=== PATIENT | female | born 1975 | race Caucasian/White ===

== ENCOUNTER 2019-03-22 04:40 | Emergency (ER) | payer BC ==
--- NOTE | 2019-03-22 04:55 | EDM.PDOC ---
ED HPI GENERAL MEDICAL PROBLEM - General Chief Complaint: Respiratory Problem Stated Complaint: CHEST CONGESTION, LEFT ANKLE PAIN Time Seen by Provider: 03/22/19 04:52 - History of Present Illness INITIAL COMMENTS - FREE TEXT/NARRATIVE: HISTORY AND PHYSICAL: History of present illness: Patient's 43-year-old female presents with a concern of cough congestion and left ankle pain patient is a smoker she denies fever chills nausea vomiting patient states she injured her ankle approximately 1 month prior and has had chronic intermittent pain since. Review of systems: As per history of present illness and below otherwise all systems reviewed and negative. Past medical history: As per history of present illness and as reviewed below otherwise noncontributory. Surgical history: As per history of present illness and as reviewed below otherwise noncontributory. Social history: No reported history of drug or alcohol abuse. Family history: As per history of present illness and as reviewed below otherwise noncontributory. Physical exam: HEENT: Atraumatic, normocephalic, pupils reactive, negative for conjunctival pallor or scleral icterus, mucous membranes moist, throat clear, neck supple, nontender, trachea midline. Lungs: Clear to auscultation, breath sounds equal bilaterally, chest nontender. Heart: S1S2, regular, negative for clicks, rubs, or JVD. Abdomen: Soft, nondistended, nontender. Negative for masses or hepatosplenomegaly. Negative for costovertebral tenderness. Pelvis: Stable nontender. Genitourinary: Deferred. Rectal: Deferred. Extremities: Atraumatic, negative for cords or calf pain. Neurovascular unremarkable. Neuro: Awake, alert, oriented. Cranial nerves II through XII unremarkable. Cerebellum unremarkable. Motor and sensory unremarkable throughout. Exam nonfocal. Diagnostics: Chest x-ray Therapeutics: None Impression: #1 tracheobronchitis #2 left ankle pain Definitive disposition and diagnosis as appropriate pending reevaluation and review of above. - Related Data Allergies Allergy/AdvReac Type Severity Reaction Status Date / Time No Known Allergies Allergy Verified 03/22/19 04:52 ED ROS GENERAL - Review of Systems Review Of Systems: ROS reveals no pertinent complaints other than HPI. ED EXAM, GENERAL - Physical Exam Exam: See Below (See dictation) Departure - Departure Time of Disposition: 04:54 Disposition: Home, Self-Care 01 Condition: Good Clinical Impression: Tracheobronchitis, Ankle pain - Discharge Information Referrals: PCP,None [Primary Care Provider] - Additional Instructions: The following information is given to patients seen in the emergency department who are being discharged to home. This information is to outline your options for follow-up care. We provide all patients seen in our emergency department with a follow-up referral. The need for follow-up, as well as the timing and circumstances, are variable depending upon the specifics of your emergency department visit. If you don't have a primary care physician on staff, we will provide you with a referral. We always advise you to contact your personal physician following an emergency department visit to inform them of the circumstance of the visit and for follow-up with them and/or the need for any referrals to a consulting specialist. The emergency department will also refer you to a specialist when appropriate. This referral assures that you have the opportunity for followup care with a specialist. All of these measure are taken in an effort to provide you with optimal care, which includes your followup. Under all circumstances we always encourage you to contact your private physician who remains a resource for coordinating your care. When calling for followup care, please make the office aware that this follow-up is from your recent emergency room visit. If for any reason you are refused follow-up, please contact the [facility] emergency department at and asked to speak to the emergency department charge nurse. [facility] [address] [place] [id number] [facility] - [facility] Professional Building [address] [place] [address], [address] [place] [address] Albuterol as prescribed. Smoking follow-up primary care and orthopedic clinic above return as needed as discussed
--- NOTE | 2019-03-22 05:22 | CR ---
Indication: Ankle pain Technique: Three views left ankle Comparison: Nine Findings: Bones: Alignment is normal. No fractures or bone lesions. Joint spaces: Unremarkable. Soft tissues: Unremarkable. Impression: Negative. Dictated by Susan Yadav MD @ Mar 22 2019 5:21AM Signed by Dr. Susan Yadav @ Mar 22 2019 5:21AM
--- NOTE | 2019-03-22 05:31 | CR ---
Indication: Cough Technique: Chest 1 view Comparison: None Findings/Impression: Normal cardiomediastinal silhouette. Clear lungs and pleural spaces. No acute osseous abnormality. Dictated by Susan Yadav MD @ Mar 22 2019 5:30AM Signed by Dr. Susan Yadav @ Mar 22 2019 5:30AM
== END 2019-03-22 05:59 | disposition home or self-care (01) ==
LOC: EDSEX 04:40 → MW.ED 04:40
DX: J40 Bronchitis, not specified as acute or chronic (principal); M25.572 Pain in left ankle and joints of left foot; F17.200 Nicotine dependence, unspecified, uncomplicated
CPT/HCPCS: 71045; 71045-26; 73610-26-LT; 73610-LT; 99282; 99283-25

== ENCOUNTER 2019-09-20 23:23 | Emergency (ER) | payer BC ==
--- NOTE | 2019-09-21 00:04 | EDM.PDOC ---
ED [facility] GENERAL MEDICAL PROBLEM - General Chief Complaint: Skin Complaint Stated Complaint: ALLERGIC REACTION Time Seen by Provider: 09/21/19 00:00 Source of Information: Reports: Patient History Limitations: Reports: No Limitations - History of Present Illness INITIAL COMMENTS - FREE TEXT/NARRATIVE: Patient is 44-year-old female with a past medical history of early bowel syndrome and fibromyalgia with a chief complaint of facial rash. Patient states rashes been present for approximately 2 days. Patient states rash started on her neck and progressed up to her face. Rash is slightly relieved by Benadryl. Rash is intermittently itchy. Patient reports some associated swelling in her cheeks. Patient denies any swelling in her throat, difficulty breathing, shortness of breath, abdominal pain. Patient denies any recent exposures. 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 Patient states she does not work with chemicals but has no recent chemical exposure that she can contribute this to. Denies any systemic symptoms or recent illnesses. In addition to that documented in the HPI above, the additional ROS was obtained : Constitutional: Denies fevers or chills Eyes: Denies vision changes ENMT: Denies sore throat CV: Denies chest pain Resp: Denies SOB GI: Denies vomiting or diarrhea : Denies painful urination MSK: Denies recent trauma Skin: Denies new rashes Neuro: Denies new numbness or tingling or weakness Endocrine: Denies unexpected weight loss Heme: Denies bleeding disorders I have reviewed the triage vital signs Const: Well nourished, well developed, appears stated age Eyes: PERRL, no conjunctival injection HENT: NCAT, Neck supple without meningismus CV: RRR, Warm, well-perfused extremities RESP: CTAB, Unlabored respiratory effort GI: soft, non-tender, non-distended, no masses MSK: No gross deformities appreciated Skin: Slight erythematous rash to the bilateral cheeks. No intraoral lesions. No involvement of the nose or nasolabial folds. 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 Sensation and motor function of extremities grossly intact. Psych: Appropriate mood and affect - Related Data Allergies Allergy/AdvReac Type Severity Reaction Status Date / Time No Known Allergies Allergy Verified 09/20/19 23:39 Home Meds: Home Meds Atropine/Diphenoxylate [Diphenoxylate-Atropine] 1 dose PO DAILY 03/22/19 [ History] Hyoscyamine [Hyomax-SL] 1 dose PO ASDIRECTED 03/22/19 [History] Modafinil 100 mg PO DAILY 03/22/19 [History] Pregabalin [Lyrica] 150 mg PO BID 03/22/19 [History] traMADol [Ultram] 50 mg PO TID PRN 03/22/19 [History] Past Medical History HEENT History: Reports: None Cardiovascular History: Reports: None Respiratory History: Reports: None Gastrointestinal History: Reports: Irritable Bowel Syndrome Genitourinary History: Reports: None HUMAN RESOURCE STATISTICIAN History: Reports: None Musculoskeletal History: Reports: Fibromyalgia Neurological History: Reports: None Psychiatric History: Reports: None Endocrine/Metabolic History: Reports: None Hematologic History: Reports: None Immunologic History: Reports: None Oncologic (Cancer) History: Reports: None Dermatologic History: Reports: None - Infectious Disease History Infectious Disease History: Reports: Chicken Pox - Past Surgical History Head Surgeries/Procedures: Reports: None HEENT Surgical History: Reports: Adenoidectomy, Tonsillectomy Cardiovascular Surgical History: Reports: None Respiratory Surgical History: Reports: None GI Surgical History: Reports: None Female Surgical History: Reports: Hysterectomy Endocrine Surgical History: Reports: None Neurological Surgical History: Reports: None Musculoskeletal Surgical History: Reports: None Oncologic Surgical History: Reports: None Dermatological Surgical History: Reports: None Social & Family History - Family History Family Medical History: Noncontributory - Tobacco Use Smoking Status *Q: Current Every Day Smoker Years of Tobacco use: 20 Packs/Tins Daily: 0.3 - Caffeine Use Caffeine Use: Reports: Coffee, Energy Drinks, Tea - Recreational Drug Use Recreational Drug Use: Yes Drug Use in Last 12 Months: Yes Recreational Drug Type: Reports: Marijuana/Hashish Recreational Drug Use Frequency: Weekly ED ROS GENERAL - Review of Systems Review Of Systems: See Below ED EXAM, SKIN/RASH Exam: See Below Course - Vital Signs Last Recorded V/S: Last Vital Signs Temp 35.4 C 09/20/19 23:37 Pulse 77 09/20/19 23:37 Resp 16 09/20/19 23:37 BP 118/76 09/20/19 23:37 Pulse Ox 98 09/20/19 23:37 Departure - Departure Time of Disposition: 00:03 Disposition: Home, Self-Care 01 Condition: Good Clinical Impression: Atopic dermatitis - Discharge Information Instructions: Rash Referrals: Eric Cardona MD [Primary Care Provider] - Forms: ED Department Discharge Additional Instructions: The following information is given to patients seen in the emergency department who are being discharged to home. This information is to outline your options for follow-up care. We provide all patients seen in our emergency department with a follow-up referral. The need for follow-up, as well as the timing and circumstances, are variable depending upon the specifics of your emergency department visit. If you don't have a primary care physician on staff, we will provide you with a referral. We always advise you to contact your personal physician following an emergency department visit to inform them of the circumstance of the visit and for follow-up with them and/or the need for any referrals to a consulting specialist. The emergency department will also refer you to a specialist when appropriate. This referral assures that you have the opportunity for follow-up care with a specialist. All of these measure are taken in an effort to provide you with optimal care, which includes your follow-up. Under all circumstances we always encourage you to contact your private physician who remains a resource for coordinating your care. When calling for follow-up care, please make the office aware that this follow-up is from your recent emergency room visit. If for any reason you are refused follow-up, please contact the [facility] Emergency Department at and asked to speak to the emergency department charge nurse. Please return immediately to the emergency department if your rash progresses, he develops shortness of breath or abdominal pain or have any other emergent concerns. Please use medication as prescribed. Do not use the medication for longer than 1 week. If the condition last for more than 1 week, please seek evaluation by your primary medical doctor. Sepsis Event Note - Evaluation Sepsis Screening Result: No Definite Risk - Focused Exam Vital Signs: Vital Signs Temp Pulse Resp BP Pulse Ox 09/20/19 23:37 35.4 C 77 16 118/76 98 Date Exam was Performed: 09/21/19 Time Exam was Performed: 00:00 - Assessment/Plan Assessment:: Patient is a 44-year-old female with nondescript rash to her face. Possible diagnosis is dermatitis. Patient has no evidence of severe allergic reaction requiring emergent intervention. Patient has no evidence of infectious rash to her face. Patient will be treated with supportive care for 1 week of topical hydrocortisone cream. Given strict return precautions. All questions addressed and answered. Patient is applied
== END 2019-09-21 00:12 | disposition home or self-care (01) ==
LOC: MW.ED 23:23
DX: L20.9 Atopic dermatitis, unspecified (principal); F17.210 Nicotine dependence, cigarettes, uncomplicated; Z98.890 Other specified postprocedural states; Z79.899 Other long term (current) drug therapy; Z90.710 Acquired absence of both cervix and uterus
CPT/HCPCS: 99282